=== PATIENT | male | born 1975 | race Caucasian/White ===

== ENCOUNTER 2017-01-23 14:55 | Emergency (ER) | payer OTHER ==
[~2017-01-23] VITALS: Ht 175.3 cm; Wt 79.4 kg
[~2017-01-23 14:55] MED LIST: AMBIEN10 MG PO; AZULFIDINE500 MG PO; BENTYL20 MG PO; CARAFATE1 GM PO; COL100 PO; LOT20 PO; MSC30 PO; PANTOPRAZOLE SO40 M1 PO; PRI20 PO; REG10 PO; RES30 PO; SULFASALAZINE500 MG PO; ZOFRAN4 M2 PO; [UNRECOGNIZED DRUG - OTHER] PO
[2017-01-23 18:00] LABS: BASOPHIL % 0.4 % (0-2); PLATELET COUNT 241 x10^3mcL (130-400)
[2017-01-23 18:19] LABS: CALCIUM 9.1 mg/dL (8.5-10.1); CARBON DIOXIDE 27.7 mmol/L (21-32); CHLORIDE SERUM 106 mmol/L (98-107); CREATININE SERUM 1.2 mg/dL (0.7-1.3); GFR1 > 60 mL/min; GLUCOSE SERUM 95 mg/dL (74-106); POTASSIUM SERUM 3.7 mmol/L (3.5-5.1); SODIUM SERUM 143 mmol/L (136-145)
[2017-01-23 18:23] LABS: ALBUMIN 3.9 g/dL (3.4-5.0); ALKALINE PHOSPHATASE 94 U/L (46-116); ALT/SGPT 23 U/L (16-63); AST/SGOT 17 U/L (15-37); BILIRUBIN TOTAL 0.6 mg/dL (0.20-1.00); LIPASE 79 IU/L (73-393)
[2017-01-23 18:30] LABS: TOTAL PROTEIN, SERUM 8.4 g/dL (6.4-8.2)
[2017-01-23 21:14] VITALS: BP 132/88
== END 2017-01-23 20:50 | disposition home or self-care (01) ==
LOC: ED 14:55
PROVIDERS: Emergency Medicine
DX: K56.7 Ileus, unspecified (principal); I10 Essential (primary) hypertension
CPT/HCPCS: J1885; J2270; J2405; J2930; Q0092

== ENCOUNTER 2017-06-11 06:39 | Inpatient (IN) | payer OTHER ==
[~2017-06-11] VITALS: Ht 175.3 cm; Wt 78.5 kg
[2017-06-11 07:42] LABS: BASOPHIL % 0.1 % (0-2); PLATELET COUNT 335 x10^3mcL (130-400); RED CELL DISTRIBUTION WIDTH 14.4 % (11.5-14.5)
[2017-06-11 08:03] LABS: CALCIUM 10.6 mg/dL (8.5-10.1); CARBON DIOXIDE 18.5 mmol/L (21-32); CREATININE SERUM 1.7 mg/dL (0.7-1.3)
[2017-06-11 08:07] LABS: BILIRUBIN TOTAL 1.2 mg/dL (0.20-1.00)
[2017-06-11 08:10] LABS: ALBUMIN 5.1 g/dL (3.4-5.0); TOTAL PROTEIN, SERUM 10.2 g/dL (6.4-8.2)
[2017-06-11 08:57] LABS: T3 TOTAL 1.15 ng/mL
[2017-06-11 09:39] LABS: MAGNESIUM 2.6 mg/dL (1.8-2.4); PHOSPHOROUS 4.3 mg/dL (2.5-4.9)
[2017-06-11 09:50] LABS: FREE THYROXINE INDEX 2.9 ug/dL (1.4-4.5); T4(THYROXINE) 9.5 ug/dL (4.7-13.3)
[2017-06-11 11:31] VITALS: BP 131/97
[2017-06-11 12:33] LABS: UA SPECIFIC GRAVITY 1.025 (1.005-1.035); microscopic required? YES; urine erythrocyte TRACE (NEGATIVE)
[2017-06-11 12:43] LABS: AMPHETAMINE QUAL UR POSITIVE (NEG <=1000)
[2017-06-11 14:10] VITALS: BP 124/81
[2017-06-11] MEDS ORDERED: APAP/OXYCODONE1 TA4 PO (16:15)
[2017-06-11] MEDS ORDERED: TAMSULOSIN HYD0.4 M1 PO (17:00)
[2017-06-11 18:11] VITALS: BP 108/63
[2017-06-11 19:24] LABS: CALCIUM 8.4 mg/dL (8.5-10.1); CARBON DIOXIDE 22.5 mmol/L (21-32); CHLORIDE SERUM 105 mmol/L (98-107); CREATININE SERUM 1.3 mg/dL (0.7-1.3); GFR1 > 60 mL/min; GLUCOSE SERUM 134 mg/dL (74-106); POTASSIUM SERUM 3.5 mmol/L (3.5-5.1); SODIUM SERUM 140 mmol/L (136-145)
[2017-06-11 20:48] VITALS: BP 102/68
[2017-06-12 05:33] VITALS: BP 107/68
[2017-06-12 05:47] LABS: BASOPHIL % 0.4 % (0-2); PLATELET COUNT 275 x10^3mcL (130-400)
[2017-06-12 05:48] LABS: RED CELL DISTRIBUTION WIDTH 14.7 % (11.5-14.5)
[2017-06-12 05:49] LABS: CALCIUM 8.5 mg/dL (8.5-10.1); CARBON DIOXIDE 23.4 mmol/L (21-32); CHLORIDE SERUM 106 mmol/L (98-107); CREATININE SERUM 1.2 mg/dL (0.7-1.3); GFR1 > 60 mL/min; GLUCOSE SERUM 104 mg/dL (74-106); POTASSIUM SERUM 3.8 mmol/L (3.5-5.1); SODIUM SERUM 139 mmol/L (136-145)
[2017-06-12] MEDS ORDERED: ELA25 PO (09:20)
[2017-06-12] MEDS ORDERED: SEN PO (09:21)
[2017-06-12] MEDS ORDERED: AMITIZA24 MC1 PO (09:22)
[2017-06-12] MEDS ORDERED: LEVOFLOXACIN500 M1 PO (09:23)
[2017-06-12] MEDS ORDERED: FLA250 PO (09:23)
[2017-06-12] MEDS ORDERED: LAC PO (09:24)
[2017-06-12 10:22] VITALS: BP 102/66
[2017-06-12 11:05] VITALS: Ht 175.3 cm; Wt 78.5 kg
[2017-06-12 11:18] VITALS: BP 102/66
== END 2017-06-12 12:50 | disposition home or self-care (01) | DRG 720 ==
LOC: ED 06:39 → DU 08:19 → MU 06-12 08:20
PROVIDERS: Emergency Medicine; Family Medicine
DX: A41.9 Sepsis, unspecified organism (principal); N17.0 Acute kidney failure with tubular necrosis; I10 Essential (primary) hypertension; G89.29 Other chronic pain; M54.9 Dorsalgia, unspecified; E86.0 Dehydration; E87.6 Hypokalemia; Z82.49 Family history of ischemic heart disease and other diseases of the circulatory system; K52.89 Other specified noninfective gastroenteritis and colitis; N20.0 Calculus of kidney; R39.11 Hesitancy of micturition; K51.90 Ulcerative colitis, unspecified, without complications
CPT/HCPCS: 84439; J0295; J1885; J1956; J2405; J3010; J3480; J3490; Q0092; Q9966

== ENCOUNTER 2017-07-11 10:45 | Emergency (ER) | payer OTHER ==
[~2017-07-11] VITALS: Ht 175.3 cm; Wt 81.2 kg
[~2017-07-11 10:45] MED LIST changes: +AMITIZA24 MC1 PO; +APAP/OXYCODONE1 TA4 PO; +ELA25 PO; +FLA250 PO; +LAC PO; +LEVOFLOXACIN500 M1 PO; +SEN PO; +TAMSULOSIN HYD0.4 M1 PO
[2017-07-11 11:23] VITALS: Ht 175.3 cm; Wt 81.2 kg
[2017-07-11 14:37] LABS: BASOPHIL % 0.2 % (0-2); PLATELET COUNT 261 x10^3mcL (130-400); RED CELL DISTRIBUTION WIDTH 14.5 % (11.5-14.5)
[2017-07-11 14:43] LABS: CALCIUM 9.6 mg/dL (8.5-10.1); CARBON DIOXIDE 22.8 mmol/L (21-32); CHLORIDE SERUM 104 mmol/L (98-107); CREATININE SERUM 1.1 mg/dL (0.7-1.3); GFR1 > 60 mL/min; GLUCOSE SERUM 101 mg/dL (74-106); POTASSIUM SERUM 3.5 mmol/L (3.5-5.1); SODIUM SERUM 141 mmol/L (136-145)
[2017-07-11 14:48] LABS: ALBUMIN 4.3 g/dL (3.4-5.0); ALKALINE PHOSPHATASE 93 U/L (46-116); ALT/SGPT 34 U/L (16-63); AST/SGOT 22 U/L (15-37); BILIRUBIN TOTAL 0.6 mg/dL (0.20-1.00); LIPASE 107 IU/L (73-393)
[2017-07-11 14:50] LABS: TOTAL PROTEIN, SERUM 8.5 g/dL (6.4-8.2)
[2017-07-11 17:53] VITALS: BP 148/98
== END 2017-07-11 17:53 | disposition home or self-care (01) ==
LOC: ED 10:45
PROVIDERS: Emergency Medicine
DX: R10.13 Epigastric pain (principal); I10 Essential (primary) hypertension
CPT/HCPCS: J0500; J2270; J2405; J7030

== ENCOUNTER 2017-11-24 15:21 | Emergency (ER) | payer OTHER ==
[~2017-11-24] VITALS: Ht 167.6 cm; Wt 84.4 kg
[~2017-11-24 15:21] MED LIST changes: +ADDERALL10 MG PO; +BANOPHEN25 MG PO; +BENAZEPRIL HYDR20 M1 PO; +FLOMAX0.4 MG PO; +IBU800 M2 PO; +MORPHINE SULFAT60 M2 PO; +MORPHINE SULFAT60 MG PO; +PERCOCET1 TA5 PO; +REGLAN10 M1 PO
[2017-11-24 15:30] VITALS: Ht 167.6 cm; Wt 84.4 kg
[2017-11-24 16:24] LABS: BASOPHIL % 0.7 % (0-2); PLATELET COUNT 250 x10^3mcL (130-400)
[2017-11-24 16:28] LABS: RED CELL DISTRIBUTION WIDTH 15.2 % (11.5-14.5)
[2017-11-24 16:35] LABS: CALCIUM 9.3 mg/dL (8.5-10.1); CARBON DIOXIDE 24.9 mmol/L (21-32); CHLORIDE SERUM 107 mmol/L (98-107); GFR1 > 60 mL/min; GLUCOSE SERUM 91 mg/dL (74-106); POTASSIUM SERUM 3.6 mmol/L (3.5-5.1); SODIUM SERUM 140 mmol/L (136-145)
[2017-11-24 16:48] LABS: ALBUMIN 3.7 g/dL (3.4-5.0); ALKALINE PHOSPHATASE 110 U/L (46-116); AST/SGOT 20 U/L (15-37); BILIRUBIN TOTAL 0.76 mg/dL (0.20-1.00); LIPASE 126 IU/L (73-393); TOTAL PROTEIN, SERUM 7.6 g/dL (6.4-8.2)
[2017-11-24 17:07] LABS: ALT/SGPT 39 U/L (16-63)
[2017-11-24 17:34] VITALS: BP 140/94
== END 2017-11-24 17:34 | disposition home or self-care (01) ==
LOC: ED 15:21
PROVIDERS: Emergency Medicine
DX: G89.29 Other chronic pain (principal); M54.5 Low back pain; I10 Essential (primary) hypertension
CPT/HCPCS: 36415; J1885

== ENCOUNTER 2018-01-23 15:48 | Inpatient (IN) | payer OTHER ==
[~2018-01-23] VITALS: Ht 177.8 cm; Wt 84.0 kg
[2018-01-23 16:00] VITALS: Ht 177.8 cm; Wt 84.0 kg
[2018-01-23 17:15] LABS: PLATELET COUNT 266 x10^3mcL (130-400); RED CELL DISTRIBUTION WIDTH 13.5 % (11.5-14.5)
[2018-01-23 17:16] LABS: UA SPECIFIC GRAVITY 1.015 (1.005-1.035); microscopic required? YES; urine erythrocyte 2+ (NEGATIVE)
[2018-01-23 17:40] LABS: CALCIUM 11.7 mg/dL (8.5-10.1); CARBON DIOXIDE 23.6 mmol/L (21-32); CHLORIDE SERUM 100 mmol/L (98-107); CREATININE SERUM 1.3 mg/dL (0.7-1.3); GFR1 > 60 mL/min; GLUCOSE SERUM 125 mg/dL (74-106); POTASSIUM SERUM 3.5 mmol/L (3.5-5.1); SODIUM SERUM 137 mmol/L (136-145)
[2018-01-23 17:41] LABS: AMPHETAMINE QUAL UR NONE DETECTED (See below)
[2018-01-23 17:44] LABS: ALKALINE PHOSPHATASE 160 U/L (46-116); ALT/SGPT 59 U/L (16-63); AST/SGOT 34 U/L (15-37); BILIRUBIN TOTAL 1.3 mg/dL (0.20-1.00); LIPASE 87 IU/L (73-393)
[2018-01-23 17:45] LABS: ALBUMIN 5.3 g/dL (3.4-5.0)
[2018-01-23 19:18] LABS: T3 TOTAL 1.44 ng/mL
[2018-01-23 19:19] LABS: BAND NEUTROPHIL 10 % (0-10); BASOPHIL 0 % (0-2); MONOCYTE 3 % (0-7); SEGMENTED NEUTROPHILS 80 % (37-75)
[2018-01-23 19:21] LABS: PLATELET MORPHOLOGY PLATELETS NORMAL; rbc morphology (normal/abnorm) NORMAL (NORMAL)
[2018-01-23 19:24] VITALS: BP 135/102
[2018-01-23 19:29] LABS: MAGNESIUM 2.4 mg/dL (1.8-2.4); PHOSPHOROUS 2.5 mg/dL (2.5-4.9)
[2018-01-23 19:34] LABS: CHOLESTEROL/HDL RATIO 4.1
[2018-01-23 19:39] LABS: FREE T4 1.04 ng/dL (0.76-1.46); FREE THYROXINE INDEX 3.4 ug/dL (1.4-4.5); T4(THYROXINE) 10.4 ug/dL (4.7-13.3)
[2018-01-24 05:46] VITALS: BP 116/78
[2018-01-24 06:59] LABS: CALCIUM 8.3 mg/dL (8.5-10.1); CARBON DIOXIDE 24.2 mmol/L (21-32); CHLORIDE SERUM 110 mmol/L (98-107); CREATININE SERUM 1.1 mg/dL (0.7-1.3); GFR1 > 60 mL/min; GLUCOSE SERUM 102 mg/dL (74-106); PHOSPHOROUS 3.4 mg/dL (2.5-4.9); SODIUM SERUM 144 mmol/L (136-145)
[2018-01-24 07:08] LABS: BASOPHIL % 0.3 % (0-2); PLATELET COUNT 262 x10^3mcL (130-400); RED CELL DISTRIBUTION WIDTH 13.4 % (11.5-14.5)
[2018-01-24 09:47] VITALS: BP 136/92
[2018-01-24 17:33] VITALS: BP 118/71
[2018-01-24 20:59] VITALS: BP 112/63
[2018-01-25 05:29] VITALS: BP 128/83
[2018-01-25 06:19] LABS: BASOPHIL % 0.5 % (0-2); PLATELET COUNT 203 x10^3mcL (130-400)
[2018-01-25 06:30] LABS: CALCIUM 8.1 mg/dL (8.5-10.1); CARBON DIOXIDE 23.8 mmol/L (21-32); CHLORIDE SERUM 108 mmol/L (98-107); CREATININE SERUM 1.1 mg/dL (0.7-1.3); GFR1 > 60 mL/min; GLUCOSE SERUM 93 mg/dL (74-106); POTASSIUM SERUM 3.6 mmol/L (3.5-5.1); SODIUM SERUM 140 mmol/L (136-145)
[2018-01-25 09:33] VITALS: BP 134/85
[2018-01-25] MEDS ORDERED: FLA250 PO (13:19)
== END 2018-01-25 14:43 | disposition home or self-care (01) | DRG 248 ==
LOC: ED 15:48 → MU 18:19
PROVIDERS: Emergency Medicine; Family Medicine
DX: A04.72 Enterocolitis due to Clostridium difficile, not specified as recurrent (principal); N17.0 Acute kidney failure with tubular necrosis; Q85.01 Neurofibromatosis, type 1; N39.0 Urinary tract infection, site not specified; I10 Essential (primary) hypertension; G89.29 Other chronic pain; G47.00 Insomnia, unspecified; R31.9 Hematuria, unspecified; E78.5 Hyperlipidemia, unspecified; M54.9 Dorsalgia, unspecified; F41.9 Anxiety disorder, unspecified; F32.9 Major depressive disorder, single episode, unspecified; R80.9 Proteinuria, unspecified; M19.90 Unspecified osteoarthritis, unspecified site; N40.0 Benign prostatic hyperplasia without lower urinary tract symptoms; Z68.27 Body mass index [BMI] 27.0-27.9, adult; Z82.49 Family history of ischemic heart disease and other diseases of the circulatory system; Z84.89 Family history of other specified conditions; Z79.899 Other long term (current) drug therapy
CPT/HCPCS: 83880; 84439; 87046; 87046-59; J2405; J2550; J2765; J3010; J3490; J7030; J8597; Q0092; Q0162; Q0163

== ENCOUNTER 2018-12-23 00:47 | Inpatient (IN) | payer OTHER ==
[~2018-12-23] VITALS: Ht 152.4 cm; Wt 90.1 kg
[~2018-12-23 00:47] MED LIST changes: -MSC30 PO
[2018-12-23 00:51] VITALS: Ht 152.4 cm; Wt 90.1 kg
--- NOTE | 2018-12-23 00:58 | NUR ---
PT COMES INTO ED WTIH COMPLAINT OF BILATERAL UPPER QUADRANT ABD PAIN 8/10 SHARP IN QUALITY, WITH NAUSEA. PT REPORTS VOMITTING X6 GREENISH YELLOW EMESIS AND WATERY DIARRHEA THAT IS "CONSTANT AND ALL DAY". ABD SOFT/ROUND, ACTIVE BOWEL SOUNDS. PT IN NO ACUTE DISTRESS, DENIES SOB. AOX4. AWAITING MSE BY PROVIDER.
--- NOTE | 2018-12-23 01:06 | NUR ---
ASSISTED PT TO RESTROOM, PT REPORTS HAVING YELLOW DIARRHEA AT THIS TIME.
[2018-12-23 01:54] LABS: UA SPECIFIC GRAVITY >=1.030 (1.005-1.035); microscopic required? YES; urine erythrocyte 2+ (NEGATIVE)
[2018-12-23 02:03] LABS: BASOPHIL % 1.5 % (0-2); PLATELET COUNT 264 x10^3mcL (130-400); RED CELL DISTRIBUTION WIDTH 12.9 % (11.5-14.5)
[2018-12-23 02:10] LABS: CALCIUM 10.2 mg/dL (8.5-10.1); CARBON DIOXIDE 23.3 mmol/L (21-32); CREATININE SERUM 1.4 mg/dL (0.7-1.3); POTASSIUM SERUM 3.4 mmol/L (3.5-5.1)
[2018-12-23 02:24] LABS: ALBUMIN 4.6 g/dL (3.4-5.0); BILIRUBIN TOTAL 0.92 mg/dL (0.20-1.00)
--- NOTE | 2018-12-23 02:24 | NUR ---
PT REPORTING 7/10 ABD PAIN IN MID ABD AREA. DR. ALVAREZ MADE AWARE.
[2018-12-23 02:25] LABS: TOTAL PROTEIN, SERUM 9.3 g/dL (6.4-8.2)
--- NOTE | 2018-12-23 02:45 | NUR ---
TECH AT BEDSIDE TO TAKE PT TO CT
--- NOTE | 2018-12-23 02:52 | NUR ---
PT BACK FROM CT
[2018-12-23] MEDS ORDERED: AMBIEN10 MG PO (04:04)
[2018-12-23] MEDS ORDERED: MORPHINE SULFAT60 MG PO (04:05)
[2018-12-23] MEDS ORDERED: REGLAN10 M1 PO (04:05)
[2018-12-23] MEDS ORDERED: PERCOCET1 TA5 PO (04:05)
--- NOTE | 2018-12-23 06:01 | NUR ---
PER DR. KIM MATA TO SEND UPSTAIRS
--- NOTE | 2018-12-23 06:13 | NUR ---
GAVE REPORT TO REHANA LUGO. UPDATES GIVEN, QUESTIONS ANSERED.
--- NOTE | 2018-12-23 06:25 | NUR ---
PT RECEIVED FROM ED VIA WHEELCHAIR ACCOMPANIED BY TWO RNS. PT A/O X4, ABLE TO MAKE NEEDS KNOWN. MED-SURG, PT DENIES ANY CP/PRESSURE. BREATHING IS EVEN AND UNLABORED ON RA, NO RESP DISTRESS NOTED. ABD SOFT AND ROUND, PT ADMITTED FOR ABD PAIN AND COLITIS. PT REPORTS HAVING INTERMITTENT EPISODES OF N/V. PT REPORTS LBM-TODAY, DIARRHEA, YELLOW. VOIDS FREELY, BRP. AMBULATORY WITH STEADY GAIT. SKIN IS WARM AND DRY, INTACT. PT C/O 11/16 ABD PAIN. SL TO LAC, PATENT AND INTACT, SITE WNL. ORIENTED PT TO ROOM AND CALL LIGHT. NO ACUTE DISTRESS NOTED. CALL LIGHT WITHIN REACH. WILL ENDORSE CARE TO AM NURSE.
[2018-12-23 06:46] VITALS: BP 141/87
[2018-12-23 08:29] VITALS: BP 141/87
--- NOTE | 2018-12-23 08:44 | NUR ---
PATIENT HAS BEEN RECEIVED FROM ER BY PREVIOUS SHIFT AND IS STABLE AT THIS TIME. STARTED ON IV FLUIDS AND HAD RECEIVED FLAGYL AND LEVAQUIN IN THE ER. PATIENT HAS ALSO RECEIVE DMEDICATIN FOR PAIN AND IS FAIRLY COMFORTABLE AT THIS ETIM DE HAS BEEN HAVING DIARRHEA AT TODAY AND ABOUT SIX TIMES AND STARTED LAST NIGHT THAT BROUGHT HIM TO THE ER. HE HAS A HISTORY OF COLITIS AND THIS IS THE PROBABLE CAUSE. PATIENT AHS ADMITTE DTO NOT BEING COMPLIANT WITH THE DIET FOR COLITIS. PATIENT AHS BEEN NOTE DTO HAV EALSO DJD, NEUROFIBROMETOSA AND HAS HTN. WEARS GLASSES AND HAS A DRY ABRASION TO THE RIGHT FOOT OUTER ANKLE AREA. PATIENT HAS SOME TRACE EDEMA TO [facility] EXTREMITES. STATES THE STOOL IS GREENISH YELLOW IN COLOR. HILARY BARONEHS BEEN A PREVIOUS SMOKER OF CIGARS AND HAS DENIED DRINKING. HE HAS BEEN WORKING HIS WIFES CAREGIVER SHE IS DISABLED DUE TO DIABETES AND NEUROPATHY AND SWELLING TO HE LWOER EXTREMTIES MAKING IT HARD FOR HER TO CARE FOR HERSELF. PATIENTS VITALS AT THIS TIME AT 97.1, 67, 18, 141/87, 97% WTITH A MAP OF 102. WILL CONTINUE TO MONITOR INDICATED. THE MRSA SCREEN DONE BY PREVIOUS SHIFT. AND AWAITING RESULTS. ALSO RECEIVE D2 LITER SOF NS AND BENTYL AND ZOFRAN WELL ZOSYN IN THE ER. NO ADVERSE REACTION NOTE DETO ANY OF THE MEDICATION GIVEN.
[2018-12-23 09:43] VITALS: BP 129/81
--- NOTE | 2018-12-23 11:01 | NUR ---
REQUESTED PAIN MEDICATION AND GAVE MORPHINE ORDERED. CONTINUE TO MONITOR FOR EFFECTIVENESS.
--- NOTE | 2018-12-23 13:00 | NUR ---
GAVE ZOFRAN FOR COMPLAINTS OF NAUSEA AND EFFECITVE AT THIS TIME. THE MORPHINE WAS EFFECTIVE IN RELIEVING HIS PAIN EARLIER.
--- NOTE | 2018-12-23 13:40 | NUR ---
REQUESTED PAIN MEDICATION AND GAVE DILAUDID ORDERED. PATIENT HAS PAIN AN 8/10 TO THE ABDOMEN. WILL MONITOR FOR EFFECTIVENESS.
--- NOTE | 2018-12-23 15:45 | NUR ---
DR NEWMAN TO SEE PATIENT AND WILL ADVISE OF PLAN OF CARE.
[2018-12-23 16:48] VITALS: BP 134/82
--- NOTE | 2018-12-23 18:59 | NUR ---
COMPLAINED OF PAIN AND GAVE MORPHINE ORDERED. WILL ENDORSE TO THE NEXT SHIFT INDICATED.
--- NOTE | 2018-12-23 19:40 | NUR ---
RECEIVED PT RESTING IN BED, NO ACUTE DISTRESS NOTED. AOX4, DENIES MENDIETA/DIZZINESS. MEDSURG PT, DENIES CP. PULSES PALPABLE BILAT, DENIES NUMBNESS/TINGLING IN FEET. RESP EVEN AND UNLABORED ON RA, DENIES SOB, ABD SOFT, ROUND, DENIES N/V AT THIS TIME. PT LBM= 816 AT 0500, DIARRHEA. TOLERATING CLEAR LIQUID DIET WELL. PT VOIDS FREELY, W/O DYSURIA. AMBULATORY. SKIN INTACT. IV SITE TO THE LAC PATENT, NS @ 70ML/HR. NO REDNESS, SWELLING OR PAIN NOTED. ALL COMFORT AND SAFETY MEASURE PROVIDED FOR, CALL LIGHT WITHIN REACH, BED IN LOWEST POSITION, WILL CONTINUE TO MONITOR.
[2018-12-23 21:01] VITALS: BP 121/77
--- NOTE | 2018-12-23 22:20 | NUR ---
PHONE [facility] IN REGARDS TO PT REQUESTING SLEEP AID, DR SANCHEZ COVERING DR AT THIS TIME. WILL WAIT FOR CALL BACK.
--- NOTE | 2018-12-24 05:15 | NUR ---
PT RESTED IN INTERVALS DURING SHIFT, NO ACUTE CHANGES OCCURRING OVERNIGHT. PT DENIES N/V/D DURING SHIFT. PT MEDICATED X1 WITH MORPHINE FOR ABD PAIN. OV SITE REMAINS PATENT, ALL COMFORT AND SAFETY MEASURE PROVIDED FOR, CALL LIGTH WITHIH REACH, BED IN LOWEST POISITON.
[2018-12-24 05:29] VITALS: BP 138/89
[2018-12-24 07:12] LABS: BASOPHIL % 0.4 % (0-2); PLATELET COUNT 208 x10^3mcL (130-400); RED CELL DISTRIBUTION WIDTH 13.8 % (11.5-14.5)
--- NOTE | 2018-12-24 08:00 | NUR ---
PATIENT HAD BEEN WITH COMPLAINTS OF PAIN TO THE ABDOMEN AND RECEIVED MORPHINE LAST NIGHT. NOW ASKING FOR MEDICATION AGAIN AND OFFERED NORCO. PATIENT AHS BEEN WITH CLEAR BREAHT SOUND AND BOWEL SOUNDS ACTIVE. PATIENT HAD A BM LAST NIGHT AND WAS LOOSE. PATIENT HAS BEEN AMBULATORY BUT STILL POOR INTAKE OF DIET NOTED. VITALS AT THIS TIME AT 131/89, 985, 98.5, 68, 18. NOTED LABS ARE THE POTASSIUM AT 3.4, AND THE CREATININE AT 1.4. PATIENT JOVANNY BEEN ON IV FUIDS AND THE ANTIBIOTICS HAVE BEEN DISCONTINUED. PATIENT AHS NOTE DNON OBSTRUCTIVE KIDNEY STONES AND SOME ATHROSCEROTIS CHANGES NOTED. APTJULIENN IS ANXIOUS AT TIMES AND HAS BEEN WITH INTERMIITANT PAIN TO THE ABDOMEN WILL CONTINUE TO MONITOR.
[2018-12-24 08:03] LABS: CALCIUM 7.9 mg/dL (8.5-10.1); CARBON DIOXIDE 23.9 mmol/L (21-32); CHLORIDE SERUM 108 mmol/L (98-107); GFR1 > 60 mL/min; GLUCOSE SERUM 84 mg/dL (74-106); POTASSIUM SERUM 3.5 mmol/L (3.5-5.1); SODIUM SERUM 141 mmol/L (136-145)
[2018-12-24 09:21] VITALS: BP 143/91
[2018-12-24] MEDS ORDERED: AZU500 PO (10:38)
[2018-12-24] MEDS ORDERED: FLA500 PO (10:39)
[2018-12-24] MEDS ORDERED: LACTULOSE10 GM/152 PO (10:39)
[2018-12-24] MEDS ORDERED: LEVOFLOXACIN500 M1 PO (10:39)
--- NOTE | 2018-12-24 11:01 | NUR ---
SEEN BY DR VITAL AND PLAN OF CARE FOR DISCHARGE HOME TODAY. AWAITING ORDERS.
[2018-12-24] MEDS ORDERED: MSC30 PO (11:15)
[2018-12-24 11:16] VITALS: BP 143/91
== END 2018-12-24 12:46 | disposition home or self-care (01) | DRG 254 ==
LOC: ED 00:47 → MU 05:15
PROVIDERS: Emergency Medicine; ADMIT Internal Medicine Pulmonary Disease
DX: K59.03 Drug induced constipation (principal); K51.90 Ulcerative colitis, unspecified, without complications; E86.0 Dehydration; E87.6 Hypokalemia; Q85.00 Neurofibromatosis, unspecified; I10 Essential (primary) hypertension; N20.0 Calculus of kidney; N40.0 Benign prostatic hyperplasia without lower urinary tract symptoms; M54.9 Dorsalgia, unspecified; T40.605A Adverse effect of unspecified narcotics, initial encounter; Y92.89 Other specified places as the place of occurrence of the external cause; G89.4 Chronic pain syndrome
CPT/HCPCS: G0378; J0500; J1170; J1885; J1956; J2270; J2405; J3490; J7030

== ENCOUNTER 2020-04-18 19:17 | Emergency (ER) | payer OTHER, SELFPAY ==
[~2020-04-18] VITALS: Ht 175.3 cm; Wt 86.6 kg
[~2020-04-18 19:17] MED LIST changes: +AZU500 PO; +FLA500 PO; +LACTULOSE10 GM/152 PO; +MSC30 PO
[2020-04-18 19:19] VITALS: Ht 175.3 cm; Wt 86.6 kg
[2020-04-18 20:30] VITALS: BP 163/91
== END 2020-04-18 20:30 | disposition home or self-care (01) ==
LOC: ED 19:17
DX: U07.1 COVID-19 (principal); I10 Essential (primary) hypertension
CPT/HCPCS: U0003

== ENCOUNTER 2020-07-12 23:21 | Emergency (ER) | payer OTHER ==
[~2020-07-12] VITALS: Ht 175.3 cm; Wt 86.2 kg
[2020-07-12 23:31] VITALS: Ht 175.3 cm; Wt 86.2 kg
[2020-07-13 00:55] LABS: BASOPHIL % 0.6 % (0.2-1.5); PLATELET COUNT 206 x10^3mcL (152-348)
[2020-07-13 00:58] LABS: rbc morphology (normal/abnorm) NORMAL (NORMAL)
[2020-07-13 01:16] LABS: CALCIUM 8.9 mg/dL (8.5-10.1); CHLORIDE SERUM 101 mmol/L (98-107); CREATININE SERUM 1.2 mg/dL (0.7-1.3); GFR1 > 60 mL/min; GLUCOSE SERUM 109 mg/dL (74-106); POTASSIUM SERUM 3.3 mmol/L (3.5-5.1); SODIUM SERUM 135 mmol/L (136-145)
[2020-07-13 01:17] LABS: ALBUMIN 3.8 g/dL (3.4-5.0); ALKALINE PHOSPHATASE 86 U/L (46-116); ALT/SGPT 37 U/L (16-63); AST/SGOT 24 U/L (15-37); BILIRUBIN TOTAL 0.7 mg/dL (0.20-1.00); LIPASE 82 IU/L (73-393); TOTAL PROTEIN, SERUM 7.5 g/dL (6.4-8.2)
[2020-07-13] MEDS ORDERED: MOT600 PO (01:25)
[2020-07-13] MEDS ORDERED: HYDROCODONE BIT1 T51 PO (01:25)
[2020-07-13] MEDS ORDERED: FLO4 PO (01:25)
[2020-07-13 02:07] VITALS: BP 132/83
== END 2020-07-13 02:07 | disposition home or self-care (01) ==
LOC: ED 23:21
PROVIDERS: Emergency Medicine
DX: N20.2 Calculus of kidney with calculus of ureter (principal); I10 Essential (primary) hypertension
CPT/HCPCS: J1885

== ENCOUNTER 2020-07-17 20:41 | Emergency (ER) | payer OTHER ==
[~2020-07-17] VITALS: Ht 175.3 cm; Wt 84.4 kg
[~2020-07-17 20:41] MED LIST changes: +FLO4 PO; +HYDROCODONE BIT1 T51 PO; +MOT600 PO
[2020-07-17 20:48] VITALS: Ht 175.3 cm; Wt 84.4 kg
[2020-07-17 21:07] LABS: BASOPHIL % 0.9 % (0.2-1.5); PLATELET COUNT 227 x10^3mcL (152-348); RED CELL DISTRIBUTION WIDTH 14.2 % (12.1-16.2)
[2020-07-17 21:30] LABS: CALCIUM 8.9 mg/dL (8.5-10.1); CARBON DIOXIDE 26.6 mmol/L (21-32); CHLORIDE SERUM 101 mmol/L (98-107); CREATININE SERUM 1.1 mg/dL (0.7-1.3); GFR1 > 60 mL/min; GLUCOSE SERUM 119 mg/dL (74-106); POTASSIUM SERUM 3.8 mmol/L (3.5-5.1); SODIUM SERUM 139 mmol/L (136-145)
[2020-07-17 21:37] LABS: ALBUMIN 3.8 g/dL (3.4-5.0); ALKALINE PHOSPHATASE 103 U/L (46-116); ALT/SGPT 33 U/L (16-63); AST/SGOT 21 U/L (15-37); BILIRUBIN TOTAL 0.31 mg/dL (0.20-1.00)
[2020-07-17 23:08] VITALS: BP 152/83
== END 2020-07-17 23:08 | disposition home or self-care (01) ==
LOC: ED 20:41
PROVIDERS: Emergency Medicine
DX: N20.0 Calculus of kidney (principal); I10 Essential (primary) hypertension
CPT/HCPCS: J1885; J2270; J2405